=== PATIENT | male | born 1940 | race Caucasian/White ===

== ENCOUNTER 2017-05-14 08:10 | Outpatient (CLI) | payer MEDICARE, OTHER ==
--- NOTE | ~2017-05-14 | HEMODYNAMI ---
PATIENT:JESSIE BALDWIN MEDICAL RECORD: [id number] : 40 LOCATION:[facility] ADMISSION DATE: 05/14/17 Generatedon:05/14/201714:44 Patient name: JESSIE BALDWIN Patient #: [id number] SSN: D OB: 1940 Date of study: 05/14/2017 Page: Of Hemodynamic Procedure Report Patient Data Patient Demographics Procedure consent was obtained First Name: JESSIE Gender: Male Last Name: DENNY : 1940 Patient #: [id number] Age: 76 year(s) Race: Unknown Additional ID: [id number] Contact details Address: [place] [address] State: [place] City: [place] Zip code: [address] Past Medical History Allergies: No known allergies Admission Admission Data Admission Date: 05/14/2017 Admission Time: 8:10 Procedure Procedure Types Cath Procedure Diagnostic Procedure LHC LHC w/Coronaries FFR/IVUS Intra-Coronary IVUS Initial PCI Procedure Coronary Stent Initial Miscellaneous Procedures Moderate Sedation up to 30 minutes Procedure Description Procedure Date Procedure Date: 05/14/2017 Procedure Start Time: 14:27 Procedure End Time: 14:43 Procedure Staff Name Function Hang Banuelos MD Performing Physician Tariq Brown RT Scrub Salbador Flores RN Nurse Shaylee Foote RT Monitor Gareth Celeste RT Monitor Procedure Data Cath Procedure Fluoroscopy Diagnostic fluoroscopy Total fluoroscopy Time: 4.9 time: 4.9 min min Diagnostic fluoroscopy Total fluoroscopy dose: 611 dose: 611 mGy mGy Contrast Material Contrast Material Type Amount (ml) Isovue 300 94 Entry Location Entry Primary Successful Side Size Upsize Upsize Entry Closure Carson ccessful Closure Location (Fr) 1 (Fr) 2 (Fr) Remarks Device Remarks Radial Right 6 Fr Mechanical TR BAND artery Short Compression Estimated blood loss: 10 ml Diagnostic catheters Device Type Used For End Catheter Placement Diagnostic Terumo 5Fr Procedure [place] 110cm catheter Procedure Complications No complications Procedure Medications Medication Administration Route Dosage 0.9% NaCl I.V. 100 ml/hr Oxygen NC 2 l/min Heparin Flush Bag added to field 2 bags (1000units/500ml NS) Lidocaine 2% added to field 20 Versed I.V. 1 mg Fentanyl I.V. 50 mcg Radial Cocktail added to field 1 syringe (Verapomil 2mg/Nitro 400mcg/Heparin 1500units) Fentanyl I.V. 25 mcg Radial Cocktail I.A. 1 syringe (Verapomil 2mg/Nitro 400mcg/Heparin 1500units) Heparin Bolus I.V. 4000 units Hemodynamics Rest Heart Rate: 103 (bpm) Snapshots Pre Cath Intra NCS Post Cath Vital Signs Time Heart Resp SPO2 etCO2 NIBP (mmHg) Rhythm Pain Sedation Rate (ipm) (%) (mmHg) Status Level (bpm) 14:19:39 70 19 98 27.9 148/80(124) NSR 0 (11) 10(A) , No pain 14:24:23 73 14 97 34 144/78(114) NSR 0 (11) 10(A) , No pain 14:29:02 77 16 98 30.2 118/66(89) NSR 0 (11) 10(A) , No pain 14:33:41 78 16 94 37.8 124/70(95) NSR 0 (11) 10(A) , No pain 14:38:19 74 15 95 32.5 134/74(102) NSR 0 (11) 9(A) , No pain 14:43:02 73 17 97 32.5 142/72(116) NSR 0 (11) 9(A) , No pain Medications Time Medication Route Dose Verified Delivered Reason Note s Effectiveness by by 14:21:03 0.9% NaCl I.V. 100 Hang Salbador Per physician ml/hr Lakisha Flores RN 14:21:18 Oxygen NC 2 l/min Hang Siu Per physician Lakisha Flores RN 14:21:31 Heparin Flush added 2 bags Hang Salbador used for Bag to Lakisha Flores procedure (1000units/500ml RN NS) 14:21:44 Lidocaine 2% added 20ml Hang Salbador for local to vial Lakisha Flores anesthetic field PALOMINO 14:22:09 Versed I.V. 1 mg Hang Salbador for sedation Lakisha Flores RN 14:22:20 Fentanyl I.V. 50 mcg Hang Siu for sedation Lakisha Flores RN 14:22:33 Radial Cocktail added 1 Hang Siu for (Verapomil to syringe Lakisha Flores vasodilation 2mg/Nitro field RN 400mcg/Heparin 1500units) 14:26:49 Fentanyl I.V. 25 mcg Hang Siu for sedation Lakisha Flores RN 14:28:20 Radial Cocktail I.A. 1 Hang Mauricio for (Verapomil syringe Lakisha Banuelos MD vasodilation 2mg/Nitro 400mcg/Heparin 1500units) 14:33:33 Heparin Bolus I.V. 4000 Hang Mauricio for units Lakisha Banuelos MD anticoagulation Procedure Log Time Note 14:03:44 Salbador Flores RN sent for patient. Start room use. 14:03:45 Time tracking: Regular hours 14:03:50 Plan of Care:Hemodynamics will remain stable., Cardiac rhythm will remain stable., Comfort level will be maintained., Respiratory function will remain adequate., Patient/ family verbilizes understanding of procedure., Procedure tolerated without complication., Recovers from procedure without complications.. 14:04:57 H&P Date Dictated: 04/22/2017 Within 30 days and on chart., H&P Addendum completed by physician on day of procedure. (MUST COMPLETE FOR ALL OUTPATIENTS). 14:07:16 Patient arrived from Pre/Post Procedure Room to CCL 1. Patient remains on bed/stretcher for procedure. 14:07:20 Warm blankets applied, and jb hugger turned on for patient comfort. 14:07:21 Correct patient and procedure confirmed by team. 14:07:22 Signed procedure consent form obtained from patient. 14:07:24 ECG and BP/O2 sat monitors applied to patient. 14:18:42 Vital chart was started 14:18:43 Baseline sample Acquired. 14:18:47 Rhythm: unchanged. 14:18:47 Full Disclosure recording started 14:18:52 Pre-procedure instructions explained to patient. 14:18:52 Pre-op teaching completed and patient verbalized understanding. 14:18:55 Family in patients room. 14:18:57 Patient NPO since Midnight. 14:19:05 Patient allergic to No known allergies 14:19:27 Is the patient allergic to Iodine/contrast media? No. 14:19:37 Is patient on blood thinner?Yes 14:19:40 ACC The patient was administered the following blood thiners within the last 24 hours: ACCPlavix 14:19:42 Patient diabetic? Yes. 14:19:43 If diabetic: On Metformin? Yes 14:19:46 If on Metformin: Last Dose? 05/12/2017 14:19:50 Previous problem with sedation/anesthesia? No ? 14:19:51 Snore? Yes 14:19:52 Sleep apnea? No 14:19:54 Deviated septum? No 14:19:54 Opens mouth fully? Yes 14:19:55 Sticks out tongue? Yes 14:19:57 Airway obstruction? No ? 14:20:00 Dentures? Yes IN TIGHT 14:20:14 Modified Alf's test Ulnar < 7 seconds 14:20:16 Patient pain scale 0/10 ?. 14:20:24 IV patent on arrival in left hand with 0.9% NaCl at [facility]. 14:20:27 Lab results completed and on chart. 14:20:30 Right Radial & Right Groin area was prepped with chlora-prep and draped in sterile fashion 14:20:31 Alarms reviewed by R. N. 14:20:32 Sharps counted by scrub and verified by R.N. 14:20:34 --------ALL STOP TIME OUT------ 14:20:34 Final Timeout: patient, procedure, and site verified with staff and physician. All members of the team are in agreement. 14:20:36 Right Radial & Right Groin site verified by team. 14:20:38 Physical assessment completed. ASA score P 2 - A patient with mild systemic disease as per Hang Banuelos MD. 14:20:42 Sedation plan: IV Moderate Sedation Versed, Fentanyl 14:21:03 0.9% NaCl 100 ml/hr I.V. was administered by Salbador Flores RN; Per physician; 14:21:16 Use device set Radial Dx 14:21:17 Acist Syringe opened to sterile field. 14:21:18 Oxygen 2 l/min NC was administered by Salbador Flores RN; Per physician; 14:21:18 Acist Hand Control opened to sterile field. 14:21:19 Acist Manifold opened to sterile field. 14:21:19 Tegaderm 4 x 4 opened to sterile field. 14:21:20 MBrace Wrist Support opened to sterile field. 14:21:21 Medline Cath Pack opened to sterile field. 14:21:21 Bag Decanter opened to sterile field. 14:21:22 Terumo 6Fr Slender Glidesheath opened to sterile field. 14:21:22 [place] 260cm J .035 wire opened to sterile field. 14:21:31 Heparin Flush Bag (1000units/500ml NS) 2 bags added to field was administered by Salbador Flores RN; used for procedure; 14::44 Lidocaine 2% 20ml vial added to field was administered by Salbador Flores RN; for local anesthetic; 14::09 Versed 1 mg I.V. was administered by Salbador Flores RN; for sedation; 14:22:20 Fentanyl 50 mcg I.V. was administered by Salbador Flores RN; for sedation; 14::33 Radial Cocktail (Verapomil 2mg/Nitro 400mcg/Heparin 1500units) 1 syringe added to field was administered by Salbador Flores RN; for vasodilation; 14:23:15 Zero performed for pressure channel P1 14:26:49 Fentanyl 25 mcg I.V. was administered by Salbador Flores RN; for sedation; 14:27:04 Procedure started. 14:27:18 Local anesthetic to right radial artery with Lidocaine 2% by Hang Banuelos MD.INITIAL ACCESS ONLY 14:27:42 A 6 Fr Short sheath was inserted into the Right Radial artery 14:28:10 A Diagnostic Terumo 5Fr [place] 110cm catheter was advanced over the wire and used for Procedure. 14:28:20 Radial Cocktail (Verapomil 2mg/Nitro 400mcg/Heparin 1500units) 1 syringe I.A. was administered by Hang Banuelos MD; for vasodilation; 14:28:34 LV gram done using WING 14:28:35 LV hemodynamics recorded. 14:28:37 Injector settings: Ml/sec: 7, Volume: 15, 14:29:42 EF : 60 % 14:29:58 LCA angiography performed. 14:30:08 Merit BasixCompak Inflation Kit opened to sterile field. 14:30:39 RCA angiography performed. 14:31:18 Medtronic Launcher 6Fr AR 2.0 guide catheter opened to sterile field. 14:31:41 [place] IVUS Catheter opened to sterile field. 14:32:43 [place] Sci PT Graphix J 182cm 0.014 guide wire opened to sterile field. 14:32:53 6 Fr AR 2 guide catheter was inserted over the wire 14:32:58 PT GRAPHIC wire advanced. 14:33:33 Heparin Bolus 4000 units I.V. was administered by Hang Banuelos MD; for anticoagulation; 14:33:41 IVUS catheter advanced over wire. 14:37:19 IVUS pass to RCA lesion performed. 14:37:20 IVUS catheter removed over wire. 14:39:12 Inflation number: 1 A Medtronic Integrity Rx 3.5 x 15 stent was prepped and advanced across the Dist RCA, then inflated to 11 HAN for 0:10 (min:sec). 14:39:28 Stent catheter was removed intact over wire. 14:39:29 Wire removed. 14:39:29 Guide catheter removed. 14:39:46 Terumo TR Band Standard opened to sterile field. 14:40:01 Sheath removed intact; hemostasis achieved with Mechanical Compression to the Right Radial artery. 14:40:03 Procedure ended.(Physican Out) 14:40:09 Fluoroscopy time 04.90 minutes. 14:40:15 Flurop Dose total: 611 14:40:15 Fluoroscopy dose: 611 mGy 14:40:19 Contrast amount:Isovue 300 94ml. 14:42:11 TR band inflated with 12cc of air. 14:42:15 Post Procedure Pulses reassessed and unchanged 14:42:23 Post-procedure physical assessment completed. ASA score P 2 - A patient with mild systemic disease as per Hang Banuelos MD. 14:42:26 Post procedure rhythm: unchanged. 14:42:29 Estimated blood loss: 10 ml 14:42:30 Post procedure instruction explained to patient.Patient verbalizes understanding. 14:42:32 Patient needs reinforcement of post procedure teaching. 14:43:06 Procedure type changed to Cath procedure, Diagnostic procedure, LHC, LHC w/Coronaries, FFR/IVUS, Intra-Coronary IVUS Initial, PCI procedure, Coronary Stent Initial, Miscellaneous Procedures, Moderate Sedation up to 30 minutes 14:43:41 Procedure and supply charges have been captured, reviewed, submitted and are correct. 14:43:44 Procedure Complication : No complications 14:43:47 Vital chart was stopped 14:43:48 See physician's report for complete and final results. 14:43:52 Report given to Pre/Post Procedure Room. 14:43:55 Patient transfered to Pre/Post Procedure Room with Bed. 14:43:57 Procedure ended. 14:43:57 Full Disclosure recording stopped 14:43:59 End room use (Document Last) Intervention Summary Intervention Notes Time ActionType Lesion and Equipment Action# Pressure Duration Attributes Used 14:39:12 Inflate Dist RCA Medtronic 1 11 00:10 balloon Integrity Rx 3.5 x 15 stent Device Usage Item Name Manufacture Quantity Catalog Number Hospital Part Current Minim al Lot# / Charge Number Stock Stock Serial# Code Acist Acist 1 74140 [id number] 198267 732139 20 Syringe Medical Systems Inc Acist Hand Acist 1 93856 018288 527828 824759 5 Control Medical Systems Inc Acist Acist 1 09210 940465 867247 024066 5 Manifold Medical Systems Inc Tegaderm 4 3M 1 1626W 852266 156993 066838 5 x 4 MBrace Advanced 1 140-0250-00 966872 00581 054869 5 Wrist Vascular Support Dynamics Medline Cardinal 1 [id number] 802335 66566 014240 5 Cath Pack Health Bag Microtek 1 2002S 147379 11958 854630 5 Mobiplex Inc. Terumo 6Fr Terumo 1 [id number] 256247 044820 774070 [address] Leonard 1 798525 655915 186571 759737 30 260cm J .035 wire Diagnostic Terumo 1 80-8331 696878 527722 445153 5 Terumo 5Fr [place] 110cm catheter Merit Merit 1 [id number] 797091 613305 738366 15 BasixComSeeSaw [employer] Medical Inflation Kit Medtronic Medtronic 1 [id number] 721265 63811 700741 1 Launcher 6Fr AR 2.0 guide catheter Locke Locke 1 [id number] 954824 699643 102644 8 [place] IVUS Catheter [place] Sci Stock[place] 1 [id number] 721351 373616 468417 5 PT Graphix Scientific J 182cm 0.014 guide wire Medtronic Medtronic 1 [id number] 285849 273326 241321 5 [id number] Integrity Rx 3.5 x 15 stent Terumo TR Terumo 1 [id number] 642329 772158 384521 40 Band Standard Signature Audit Perry Stage Time Signature Unsigned Intra-Procedure 05/14/2017 Shaylee Foote 2:44:20 PM RT(R) Signatures Monitor : Shaylee Foote Signature : RT Date : Time : Monitor : Gaerth Celeste RT Signature : Date : Time : [address] [address]
[2017-05-14] MEDS ORDERED: ZOCOR40 MG PO (09:15)
[2017-05-14] MEDS ORDERED: GLUCOPHAGE1000 MG PO (09:15)
[2017-05-14] MEDS ORDERED: COZAAR50 MG PO (09:15)
[2017-05-14] MEDS ORDERED: OMEPRAZOLE20 M1 PO (09:16)
[2017-05-14] MEDS ORDERED: CLARITIN 10 MG10 MG PO (09:16)
[2017-05-14] MEDS ORDERED: BUPROPION XL150 MG PO (09:16)
[2017-05-14] MEDS ORDERED: FLUTICASONE PRO16 GM NASAL (09:17)
[2017-05-14] MEDS ORDERED: NOVOLIN N100 U/ML SQ (09:17)
[2017-05-14] MEDS ORDERED: MULTIPLE VITAMI1 TA1 PO (09:17)
[2017-05-14] MEDS ORDERED: PLAVIX75 MG PO (09:18)
[2017-05-14 09:29] VITALS: BP 170/78; BMI 28.0
[2017-05-14 09:45] LABS: BASOPHILS 0.4 % (0-2); EOSINOPHILS 4.2 % (0-7); HEMOGLOBIN 14.9 g/dL (13.5-17.5); IMMATURE GRANULOCYTES 0.3 % (0-5); LYMPHOCYTES 26.1 % (15-50); MCH 29.9 pg (26.0-34.0); MCHC 34.7 g/dL (31.0-37.0); MCV 86.3 fL (80.0-100.0); MEAN PLATELET VOLUME 9.2 fL (7.4-10.4); MONOCYTES 8.5 % (2-11); NEUTROPHILS 60.5 % (40-80); PLATELET COUNT 185 10x3/uL (130-400); RBC 4.98 10x6/uL (4.20-6.10); RDW 12.8 % (11.5-14.5); WBC 7.1 10x3/uL (4.8-10.8)
[2017-05-14 10:06] LABS: CALC OSMOLALITY 284 mosm/kg (275-300); CALCIUM 9.1 mg/dL (8.5-10.1); CARBON DIOXIDE 27.2 mmol/L (21.0-32.0); CHLORIDE - SERUM 103 mmol/L (98-107); GLUCOSE 217 mg/dL (74-106); POTASSIUM - SERUM 4.4 mmol/L (3.5-5.1); SODIUM 139 mmol/L (136-145); UREA NITROGEN 12 mg/dL (7-18); eGFR NON AFRICAN AMERICAN 77 mL/min (90-120)
[2017-05-14] MEDS ORDERED: BAYER CHEWABLE81 MG PO (15:08)
--- NOTE | 2017-05-14 15:26 | NUR ---
1510 SITTING UP IN BED TALKING WITH FAMILY AT BEDSIDE. SIPPING WATER AND EATING TURKEY SANDWICH. NSR RATE 78 W NO C/O CHEST PAIN. PULSES PALP X 4, R WRIST TR BAND C/D/I WNO HEMATOMA OR BLEEDING.
--- NOTE | 2017-05-14 18:34 | NUR ---
1540 RESTING WITH EYES CLOSED. ROOM AIR. ALL VITALS WNL. R WRIST TR BAND C/D/I W NO HEMATOMAO OR BLEEDING. AT SIDE.
--- NOTE | 2017-05-14 18:35 | NUR ---
1640 R WRIST TR BAND C/D/I NO HEMATOMA OR BLEEDING. VOIDED 300CC VIA URINAL. ALL VITALS WNL. 1800 2CC AIR REMOVED FROM R WRIST TR BAND. WILL MONITOR CLOSELY FOR BLEEDING. 1820 2CC AIR REMOVED FROM R WRIST TR BAND. PIV REMOVED FROM LEFT WRIST WITH BANDAID APPLIED.
--- NOTE | 2017-05-14 18:54 | NUR ---
TR BAND WEANED COMPLETELY. TEGADERM AND COTTON BALL APPLIED. BRACE IN PLACE. D/C INSTRUCTIONS DISCUSSED WITH PATIENT AND AT BEDSIDE. RETURNING ON WEDNESDAY MORNING AT 8AM FOR 10AM PROCEDURE. DISCUSSED IMPORTANCE OF DAILY PLAVIX AND ASPIRIN. VERBALIZED UNDERSTANDING. WHEELED OUT VIA WHEELCHAIR BY CATH TEAM.
--- NOTE | 2017-05-21 14:14 | OP ---
PATIENT NAME: JESSIE BALDWIN MEDICAL RECORD: [id number] :40 LOCATION:D.CAT ADMISSION DATE: SURGEON: PRASAD HINOJOSA MD DATE OF OPERATION: 05/14/2017 PROCEDURES: 1. PTCA stent RCA. 2. Left heart catheterization. 3. Selective coronary angiography. 4. Left ventriculogram. 5. Intravascular ultrasound. INDICATION: Angina and coronary artery disease. PROCEDURE IN DETAIL: After informed consent was obtained and after detailed explanation of risks, benefits as well as alternative therapies, the patient elected to proceed with angiogram and angioplasty. The right radial area was prepped and draped in normal sterile fashion. The right radial artery was cannulated via modified Seldinger technique with placement of 6-Canadian sheath. All catheters exchanged through this sheath. FINDINGS: 1. The left anterior descending has 80% stenosis in the mid vessel. 2. The left circumflex has 70% to 80% stenosis in mid vessel. 3. Right coronary artery has 71% stenosis in the mid vessel confirmed by intravascular ultrasound. PTCA STENT OF THE RIGHT CORONARY: The stent used was 3.5 x 15 mm Integrity. Result was 0% residual stenosis. OVERALL IMPRESSION: Successful percutaneous transluminal coronary angioplasty stent of the right coronary artery going from 71% initial stenosis to 0% residual stenosis. PLAN: PTCA stent of the LAD and circumflex in the near future. TRANSINT:[id number] Voice Confirmation ID: [id number] DOCUMENT ID: [id number] PRASAD HINOJOSA MD at 1414 CC: [id number] DICTATION DATE: 05/14/17 1443 FUR BUYER: 05/14/[address] [facility] CLI 05/14/[address] [id number]
== END 2017-05-14 18:56 | disposition home or self-care (01) ==
LOC: D.CATH 08:10
PROVIDERS: Internal Medicine Interventional Cardiology
DX: I25.119 Atherosclerotic heart disease of native coronary artery with unspecified angina pectoris (principal); I10 Essential (primary) hypertension; E78.5 Hyperlipidemia, unspecified; Z01.812 Encounter for preprocedural laboratory examination

== ENCOUNTER 2017-05-17 07:44 | Outpatient (CLI) | payer MEDICARE, OTHER ==
[~2017-05-17] VITALS: Ht 182.9 cm; Wt 93.6 kg
--- NOTE | ~2017-05-17 | HEMODYNAMI ---
PATIENT:JESSIE BALDWIN MEDICAL RECORD: [id number] : 40 LOCATION:DSKIP ADMISSION DATE: 05/17/17 Generatedon:05/17/201713:01 Patient name: JESSIE BALDWIN Patient #: [id number] SSN: D OB: 1940 Date of study: 05/17/2017 Page: Of Hemodynamic Procedure Report Patient Data Patient Demographics Procedure consent was obtained First Name: JESSIE Gender: Male Last Name: DENNY : 1940 Patient #: [id number] Age: 76 year(s) Race: Unknown Additional ID: [id number] Contact details Address: [place] [address] State: [place] City: [place] Zip code: [address] Past Medical History Allergies: No known allergies Admission Admission Data Admission Date: 05/17/2017 Admission Time: 7:44 Procedure Procedure Types Cath Procedure PCI Procedure Coronary Stent Initial x2 Miscellaneous Procedures Moderate Sedation up to 30 minutes Procedure Description Procedure Date Procedure Date: 05/17/2017 Procedure Start Time: 12:41 Procedure End Time: 12:59 Procedure Staff Name Function Hang Banuelos MD Performing Physician Shaylee Foote RT Scrub Pilo De Guzman RN Nurse Ilana Danielle RT Monitor Procedure Data Cath Procedure Fluoroscopy Diagnostic fluoroscopy Total fluoroscopy Time: 5.5 time: 5.5 min min Diagnostic fluoroscopy Total fluoroscopy dose: 608 dose: 608 mGy mGy Contrast Material Contrast Material Type Amount (ml) Isovue 300 126 Entry Location Entry Primary Successful Side Size Upsize Upsize Entry Closure Carson ccessful Closure Location (Fr) 1 (Fr) 2 (Fr) Remarks Device Remarks Radial Right 6 Fr Mechanical artery Short Compression Estimated blood loss: 10 ml Procedure Complications No complications Procedure Medications Medication Administration Route Dosage 0.9% NaCl I.V. ml/hr Oxygen NC 2 l/min Lidocaine 2% added to field 20 Heparin Flush Bag added to field 2 bags (1000units/500ml NS) Heparin Bolus I.V. 4000 units Versed I.V. 1 mg Fentanyl I.V. 50 mcg Versed I.V. 1 mg Fentanyl I.V. 50 mcg Hemodynamics Rest Heart Rate: 71 (bpm) Snapshots Pre Cath Intra NCS Post Cath Vital Signs Time Heart Resp SPO2 etCO2 NIBP (mmHg) Rhythm Pain Sedation Rate (ipm) (%) (mmHg) Status Level (bpm) 12:38:42 72 20 99 28.8 141/78(110) NSR 0 (11) 10(A) , No pain 12:43:22 73 21 95 11.3 118/71(90) NSR 0 (11) 9(A) , No pain 12:48:03 74 14 98 25 111/69(96) NSR 0 (11) 9(A) , No pain 12:52:46 80 14 97 30.3 130/73(102) NSR 0 (11) 10(A) , No pain 12:57:30 83 14 98 28 132/75(104) NSR 0 (11) 10(A) , No pain Medications Time Medication Route Dose Verified Delivered Reason Notes Effectiveness by by 12:38:11 0.9% NaCl I.V. ml/hr Hang Buffie used for Lakisha De Guzman RN procedure 12:38:31 Oxygen NC 2 Hang Buffie used for l/min Lakisha De Guzman RN procedure 12:38:53 Lidocaine 2% added 20ml Hang Mauricio used for to vial Lakisha Banuelos MD procedure field 12:39:13 Heparin Flush added 2 Hang Hang used for Bag to bags Lakisha Banuelos MD procedure (1000units/500ml field NS) 12:40:46 Versed I.V. 1 mg Hang Kellerie for sedation Lakisha De Guzman RN 12:40:52 Fentanyl I.V. 50 Hang Buffie for sedation mcg Lakisha De Guzman RN 12:43:16 Heparin Bolus I.V. 4000 Hangjuan Maresrey for verifi ed units Lakisha Banuelos MD anticoagulation with 12:47:12 Versed I.V. 1 mg Hang Buffie for sedation Lakisha De Guzman RN 12:47:16 Fentanyl I.V. 50 Hang Kellerie for sedation mcg Lakisha De Guzman RN Procedure Log Time Note 12:25:27 Ilana Counts RT(R) sent for patient. Start room use. 12:25:28 Time tracking: Regular hours 12:25:31 Plan of Care:Hemodynamics will remain stable., Cardiac rhythm will remain stable., Comfort level will be maintained., Respiratory function will remain adequate., Patient/ family verbilizes understanding of procedure., Procedure tolerated without complication., Recovers from procedure without complications.. 12:28:27 Patient received from Pre/Post Procedure Room to [facility] 1 Alert and oriented. Tansferred to table in Supine position. 12::28 Warm blankets applied, and jb hugger turned on for patient comfort. 12::29 Correct patient and procedure confirmed by team. 12::34 Signed procedure consent form obtained from patient. 12:28:34 ECG and BP/O2 sat monitors applied to patient. 12:37:41 Vital chart was started 12:38:11 0.9% NaCl ml/hr I.V. was administered by Pilo De Guzman RN; used for procedure; 12:38:29 Baseline sample Acquired. 12:38:30 Full Disclosure recording started 12:38:31 Oxygen 2 l/min NC was administered by Pilo De Guzman RN; used for procedure; 12:38:39 H&P Date Dictated: 05/17/2017 Within 30 days and on chart., H&P Addendum completed by physician on day of procedure. (MUST COMPLETE FOR ALL OUTPATIENTS). 12:38:40 Pre-procedure instructions explained to patient. 12:38:41 Pre-op teaching completed and patient verbalized understanding. 12:38:42 Family in waiting room. 12:38:45 Patient NPO since Midnight. 12:38:50 Patient allergic to No known allergies 12:38:52 Is the patient allergic to Iodine/contrast media? No. 12:38:53 Lidocaine 2% 20ml vial added to field was administered by Hang Banuelos MD; used for procedure; 12:38:54 Is patient on blood thinner?Yes 12:38:57 ACC The patient was administered the following blood thiners within the last 24 hours: ACCPlavix 12:38:58 Patient diabetic? Yes. 12:38:59 If diabetic: On Metformin? Yes 12:39:03 If on Metformin: Last Dose? 05/12/2017 12:39:07 Previous problem with sedation/anesthesia? No ? 12:39:08 Snore? Yes 12:39:09 Sleep apnea? No 12:39:10 Deviated septum? No 12:39:11 Opens mouth fully? Yes 12:39:12 Sticks out tongue? Yes 12:39:13 Heparin Flush Bag (1000units/500ml NS) 2 bags added to field was administered by Hang Banuelos MD; used for procedure; 12:39:13 Airway obstruction? No ? 12:39:15 Dentures? No ? 12:39:17 Pre procedure: right dorsailis pedis pulse 2+ Normal; easily identifiable; not easily obliterated 12:39:19 Modified Alf's test Ulnar < 7 seconds 12:39:21 Patient pain scale 0/10 ?. 12:39:26 IV patent on arrival in left hand with 0.9% NaCl at [facility]. 12:39:30 Lab results completed and on chart. 12:39:32 Right Radial & Right Groin area was prepped with chlora-prep and draped in sterile fashion 12:39:33 Alarms reviewed by R. N. 12:39:34 Sharps counted by scrub and verified by R.N. 12:39:40 Final Timeout: patient, procedure, and site verified with staff and physician. All members of the team are in agreement. 12:39:42 Right Radial site verified by team. 12:40:13 Physical assessment completed. ASA score P 2 - A patient with mild systemic disease as per Hang Banuelos MD. 12:40:17 Sedation plan: IV Moderate Sedation Versed, Fentanyl 12:40:41 Use device set Radial PCI 12:40:43 Acist Syringe opened to sterile field. 12:40:44 Acist Hand Control opened to sterile field. 12:40:44 Bag Decanter opened to sterile field. 12:40:44 Medline Cath Pack opened to sterile field. 12:40:45 Merit BasixCompak Inflation Kit opened to sterile field. 12:40:45 Terumo 6Fr Slender Glidesheath opened to sterile field. 12:40:45 Acist Manifold opened to sterile field. 12:40:46 Versed 1 mg I.V. was administered by Pilo D eGuzman RN; for sedation; 12:40:46 Tegaderm 4 x 4 opened to sterile field. 12:40:46 MBrace Wrist Support opened to sterile field. 12:40:47 [facility] Leonard 260cm J .035 wire opened to sterile field. 12:40:49 Procedure started. 12:40:52 Fentanyl 50 mcg I.V. was administered by Pilo De Guzman RN; for sedation; 12:41:16 Local anesthetic to right radial artery with Lidocaine 2% by Hang Banuelos MD.INITIAL ACCESS ONLY 12:41:55 A 6 Fr Short sheath was inserted into the Right Radial artery 12:42:05 Zero performed for pressure channel P1 12:42:08 Zero performed for pressure channel P1 12:42:10 Zero performed for pressure channel P1 12:42:13 Zero performed for pressure channel P1 12:43:16 Heparin Bolus 4000 units I.V. was administered by Hang Banuelos MD; for anticoagulation; verified with 12:43:20 Cordis 6FR XBLAD 4.0 SH guide catheter opened to sterile field. 12:43:30 6 Fr XBLAD 4.0 SH guide catheter was inserted over the wire 12:45:12 Guide Catheter removed. unable to cannulate vessel. 12:45:22 Cordis 6FR XBLAD 3.5 SH guide catheter opened to sterile field. 12:47:12 Versed 1 mg I.V. was administered by Pilo De Guzman RN; for sedation; 12:47:16 Fentanyl 50 mcg I.V. was administered by Pilo De Guzman RN; for sedation; 12:49:23 [place] [employer] Choice PT Extra Support J 300cm .014 gu opened to sterile field. 12:50:17 CHOICE PT ES wire advanced. 12:50:53 Inflation Number: 1 A Medtronic Integrity 3.5 X 18 stent was prepped and advanced across the Mid CX. The stent was deployed at 13 HAN for 0:07 (min:sec). 12:51:08 Wire redirected to LAD. 12:51:11 Stent catheter was removed intact over wire. 12:54:13 Inflation Number: 1 A Medtronic Integrity 3.0 X 22 stent was prepped and advanced across the Mid LAD. The stent was deployed at 15 HAN for 0:10 (min:sec). 12:54:23 Stent catheter was removed intact over wire. 12:54:24 Wire removed. 12:54:24 Guide catheter removed. 12:55:02 Terumo TR Band Standard opened to sterile field. 12:55:11 Sheath removed intact; hemostasis achieved with Mechanical Compression to the Right Radial artery. 12:55:13 Procedure ended.(Physican Out) 12:55:25 Fluoroscopy time 05.50 minutes. 12:55:29 Fluoroscopy dose: 608 mGy 12:55:29 Flurop Dose total: 608 12:55:32 Contrast amount:Isovue 300 126ml. 12:55:34 Sharps counted by scrub and verified by R.N. 12:55:37 TR band inflated with 12cc of air. 12:55:38 Insertion/operative site no bleeding no hematoma. 12:55:47 Post right radial artery:stable, clean and dry 12:55:50 Post Procedure Pulses reassessed and unchanged 12:55:55 Post-procedure physical assessment completed. ASA score P 2 - A patient with mild systemic disease as per Hang Banuelos MD. 12:55:58 Post procedure rhythm: unchanged. 12:56:01 Estimated blood loss: 10 ml 12:56:03 Post procedure instruction explained to patient.Patient verbalizes understanding. 12:56:03 Patient needs reinforcement of post procedure teaching. 12:56:17 Procedure type changed to Cath procedure, PCI procedure, Coronary Stent Initial x2, Miscellaneous Procedures, Moderate Sedation up to 30 minutes 12:56:24 Procedure Complication : No complications 12:56:27 See physician's report for complete and final results. 12:58:36 Procedure and supply charges have been captured, reviewed, submitted and are correct. 12:59:17 Vital chart was stopped 12:59:19 Report given to Pre/Post Procedure Room. 12:59:22 Patient transfered to Pre/Post Procedure Room with Stretcher. 12:59:29 Procedure ended. 12:59:29 Full Disclosure recording stopped 12:59:32 End room use (Document Last) Intervention Summary Intervention Notes Time ActionType Lesion and Equipment Action# Pressure Duration Attributes Used 12:50:53 Place stent Mid CX Medtronic 1 13 00:07 Integrity 3.5 X 18 stent 12:54:13 Place stent Mid LAD Medtronic 1 15 00:10 Integrity 3.0 X 22 stent Device Usage Item Name Manufacture Quantity Catalog Number Hospital Part Current Minim al Lot# / Charge Number Stock Stock Serial# Code Acist Acist 1 [id number] 974140 804166 [id number] 20 Advaction Acist Hand Acist 1 59823 853225 503908 323626 5 Control Medical Systems Inc Bag Microtek 1 2002S 171844 20134 727746 5 Decanter [employer] Inc. Medline Cardinal 1 [id number] 985442 64135 350319 5 Nordicplan [facility] 1 [id number] 967636 127849 054916 15 SPIL GAMESixOportunista Medical Inflation Kit Terumo 6Fr Terumo 1 [id number] 582807 810700 760120 40 Slender Glidesheath Acist Acist 1 90395 447111 599423 577861 5 Manifold Medical Systems Inc Tegaderm 4 3M 1 1626W 520573 747929 436769 5 x 4 MBrace Advanced 1 140-0250-00 321594 71133 704451 5 W[address] V[address] [facility] Leonard 1 650025 162090 123498 700653 30 260cm J .035 wire Cordis 6FR Cardinal 1 [id number] 409629 2159 670131 3 XBLAD 4.0 [facility] guide catheter Cordis 6FR Cardinal 1 [id number] 080144 022568 079444 3 XBLAD 3.5 Health guide catheter [place] Sci [place] 1 [id number] 616316 871627 638445 5 Choice PT Scientific Extra Support J 300cm .014 gu Medtronic Medtronic 1 [id number] 040532 571319 4 [id number] Integrity 3.5 X 18 stent Medtronic Medtronic 1 [id number] 844390 221903 9 [id number] Integrity 3.0 X 22 stent Terumo TR Terumo 1 [id number] 614449 342819 134917 40 Band Standard Signature Audit Homer Stage Time Signature Unsigned Intra-Procedure 05/17/2017 Ilana 1:01:00 PM Counts RT(R) Signatures Monitor : Ilana Signature : Counts RT Date : Time : [facility] [address] [place] [address]
[~2017-05-17 07:44] MED LIST: BAYER CHEWABLE81 MG PO; BUPROPION XL150 MG PO; CLARITIN 10 MG10 MG PO; COZAAR50 MG PO; FLUTICASONE PRO16 GM NASAL; GLUCOPHAGE1000 MG PO; MULTIPLE VITAMI1 TA1 PO; NOVOLIN N100 U/ML SQ; OMEPRAZOLE20 M1 PO; PLAVIX75 MG PO; ZOCOR40 MG PO
[2017-05-17 08:50] VITALS: BP 144/74; Ht 182.9 cm; Wt 93.6 kg
[2017-05-17 09:03] LABS: BASOPHILS 0.4 % (0-2); EOSINOPHILS 3.4 % (0-7); HEMATOCRIT 42.2 % (42.0-54.0); HEMOGLOBIN 14.8 g/dL (13.5-17.5); IMMATURE GRANULOCYTES 0.7 % (0-5); LYMPHOCYTES 22.5 % (15-50); MCH 30.1 pg (26.0-34.0); MCHC 35.1 g/dL (31.0-37.0); MCV 85.9 fL (80.0-100.0); MEAN PLATELET VOLUME 9.1 fL (7.4-10.4); MONOCYTES 6.8 % (2-11); NEUTROPHILS 66.2 % (40-80); PLATELET COUNT 188 10x3/uL (130-400); RBC 4.91 10x6/uL (4.20-6.10); RDW 12.6 % (11.5-14.5); WBC 7.6 10x3/uL (4.8-10.8)
[2017-05-17 09:10] LABS: ANION GAP 11.6 mmol/L (8-16); CALCIUM 8.6 mg/dL (8.5-10.1); CARBON DIOXIDE 25.4 mmol/L (21.0-32.0); CREATININE - SERUM 1.1 mg/dL (0.6-1.3)
--- NOTE | 2017-05-17 13:14 | NUR ---
1305 RECEIVED PT FROM CHIEF DIGITAL OFFICER. PT IS DROSWY. DENIES ANY C/O CHEST PAIN OR NAUSEA. TR BAND CDI TO RIGHT WRIST WITH NO BLEEDING OR HEMATOMA NOTED. FINGERS WARM, CAP REFILL IS BRISK. NSR, RATE OF 76, PT DENIES ANY C/O CHEST PAIN. AT BEDSIDE, CALL LIGHT IN REACH.
--- NOTE | 2017-05-17 13:15 | NUR ---
1315 NO BLEEDING OR HEMATOMA NOTED AT TR BAND. FINGERS WARM, CAP REFILL IS BRISK. RR IS EVEN AND UNLABORED. PT DENIES ANY C/O. AT BEDSIDE. CALL LIGHT IN REACH.
--- NOTE | 2017-05-17 13:30 | NUR ---
1330 AT BEDSIDE. SANDWICH AND PO FLUIDS SERVED. PT DENIES ANY C/O. NO BLEEDING OR HEMATOMA AT CATH SITE. VSS. WILL CONTINUE TO MONITOR.
--- NOTE | 2017-05-17 14:04 | NUR ---
1345 PT DENIES ANY C/O. IS JOSE ANGEL SANDWICH AND PO FLUIDS WITH NO C/O. NO BLEEDING NOTED AT CATH SITE. AT BEDSIDE, CALL LIGHT IN REACH.
--- NOTE | 2017-05-17 14:42 | NUR ---
1430 PT ALERT, SITTING UP IN BED VISITING WITH . DENIES ANY C/O AT THIS TIME. TR BAND IS CDI, NO BLEEDING OR HEMATOMA NOTED. FINGERS WARM, CAP REFILL IS BRISK, VSS. PT DENIES NEEDS AT THIS TIME. WILL CONTINUE TO MONITOR.
--- NOTE | 2017-05-17 15:30 | NUR ---
1530 PT DENIES ANY C/O. HAS JOSE ANGEL SANDWICH AND PO FLUIDS WITH NO NAUSEA. TR BAND REMAINS CDI, VSS. AT BEDSIDE AND CALL LIGHT IN REACH.
--- NOTE | 2017-05-17 16:00 | NUR ---
1600 4 CC OF AIR REMOVED FROM TR BAND WITH NO BLEEDING NOTED. PT DENIES ANY C/O.
--- NOTE | 2017-05-17 16:45 | NUR ---
1645 ALL AIR AHS BEEN REMOVED FROM TR BAND WITH NO BLEEDING OR HEMATOMA NOTED. FINGERS WARM, CAP REFILL IS BRISK. 2X2 AND TEGADERM PLACED TO SITE. WRIST IMMOBILIZER IN PLACE. FINGERS WARM, CAP REFILL IS BRISK. PT DENIES ANY NV DEFICIT TO HAND. IV DC'D WITH CATH INTACT AND PT IS DRESSING FOR DC TO HOME.
--- NOTE | 2017-05-17 18:03 | NUR ---
1705 DC INSTRUCTIONS HAVE BEEN REVIEWED WITH PT AND WHO VERBALIZE UNDERSTANDING. PT HAS AMBULATED TO THE BATHROOM AND VOIDED QS. DRESSING TO RIGHT WRIST REMAINS CDI. PT ESCORTED TO PRIVATE AUTO VIA WC BY NURSE WITH DRIVING HIM HOME.
--- NOTE | 2017-05-21 14:14 | OP ---
PATIENT NAME: JESSIE BALDWIN MEDICAL RECORD: [id number] :40 LOCATION:D.CAT ADMISSION DATE: SURGEON: PRASAD HINOJOSA MD DATE OF OPERATION: 05/17/2017 PROCEDURES: 1. PTCA stent LAD. 2. PTCA stent left circumflex. 3. Selective coronary angiography. INDICATION: Angina and coronary artery disease. PROCEDURE IN DETAIL: After informed consent was obtained and after detailed explanation of risks, benefits as well as alternative therapies, the patient elected to proceed with angiogram and angioplasty. The right radial area was prepped and draped in normal sterile fashion. The right radial artery was cannulated via modified Seldinger technique with placement of 6-Yi sheath. All catheters exchanged through this sheath. FINDINGS: The left circumflex has 80% stenosis mid vessel. This was addressed with a 3.5 x 18 mm Integrity. The left anterior descending has an 80% stenosis in the proximal vessel. This was addressed with a 3.0 x 22 mm Integrity. Result was 0% residual. IMPRESSION: Successful percutaneous transluminal coronary angioplasty stent of the left anterior descending and circumflex, both going from 80% initial stenosis to 0% residual stenosis. TRANSINT:[id number] Voice Confirmation ID: [id number] DOCUMENT ID: [id number] PRASAD HINOJOSA MD at 1414 CC: [id number] DICTATION DATE: 05/17/17 1257 NEWSPAPER MANAGER: 05/17/17 1419 DEP CLI 05/17/17 [place] [id number]
--- NOTE | 2017-05-21 14:14 | HP ---
PATIENT: JESSIE BALDWIN MEDICAL RECORD: [id number] ACCOUNT: [id number] LOCATION:[place] : 40 ADMISSION DATE: 05/17/17 HISTORY AND PHYSICAL EXAMINATION ADMITTING DIAGNOSES: 1. Angina. 2. Coronary artery disease. 3. Percutaneous transluminal coronary angioplasty stent to right coronary artery with concomitant disease of LAD and circumflex. HISTORY OF PRESENT ILLNESS: This is a gentleman who presents with anginal symptomatology, found to have 3-vessel coronary artery disease, underwent PTCA stent of the RCA. He is now brought back for PTCA stent of the LAD and circumflex. PHYSICAL EXAMINATION: GENERAL APPEARANCE: Well-nourished, well-developed, appears stated age. Level of distress, comfortable. PSYCHIATRIC: Mental status, alert, normal affect. Orientation, oriented to time, place and person. EYES: Lids and conjunctiva, noninjected. No discharge, no pallor. ENT: Lips, teeth, gums, normal dentition. Oropharynx, no cyanosis, no pallor. NECK: Carotid arteries, bilateral normal upstroke, no bruits, no thrills. JUGULAR VEINS: No jugular venous pressure or distention. CERVICAL LYMPH NODES: Nontender, nonenlarged. THYROID: Not enlarged. Nontender. No nodules. LUNGS: Respiratory effort, unlabored. CHEST: Normal curvature. No thoracic deformity. No chest wall tenderness. Percussion, resonant. Auscultation, clear. No wheezes, no rales, no rhonchi. CARDIOVASCULAR: Precordial exam, nondisplaced. No heaves or pericardial thrills. Rate and rhythm, regular. Heart sounds, normal S1, normal S2. No S3, no gallop, no rub. Systolic murmur, not heard. Diastolic murmur, not heard. EXTREMITIES: No cyanosis, no edema. Peripheral pulses, full and equal in all extremities, except as noted. No bruits appreciated. ABDOMEN: Soft, nondistended. Normal aorta. No bruit. Nontender. No masses. Liver, nontender, no hepatomegaly. Spleen, nontender, no splenomegaly. MUSCULOSKELETAL: No joint tenderness. No joint swelling. No erythema. NEUROLOGICAL: Normal gait, normal strength, normal tone. SKIN: Warm and dry. REVIEW OF SYSTEMS: The patient reports easy bruising but reports no swollen glands. The patient reports no fever, no night sweats, no significant weight gain, no significant weight loss. No significant exercise tolerance. The patient reports no dry eyes, no irritation, no vision change. Patient reports no difficulty hearing and no ear pain. Patient reports no frequent nose bleeds or nose and sinus problems. Patient reports on arm pain on exertion. No shortness of breath while lying down. No history of heart murmur. Patient reports no cough, no wheezing or coughing up blood. Patient reports no abdominal pain, no vomiting. Normal appetite. No diarrhea and not vomiting blood. No nausea and no constipation. Patient reports no incontinence. No difficulty urinating. No hematuria. No increased frequency. Patient reports no muscle aches. No weakness, no arthralgias, no back pain. No swelling of the extremities. Patient reports no abnormal mole, no jaundice, no rashes. Reports no loss of consciousness. No weakness and no numbness. No seizures, dizziness, HISTORY AND PHYSICAL [id number] DENNY,JESSIE or headaches. The patient reports no depression, no sleep disturbance, feeling safe in a relationship and no alcohol abuse. Patient reports on fatigue. Reports no runny nose or sinus pressure. No itching, no hives, and no frequent sneezing. OVERALL IMPRESSION: Anginal symptomatology with significant disease of the LAD and circumflex. We will proceed with PTCA stent of the LAD and circumflex. TRANSINT:[id number] Voice Confirmation ID: [id number] DOCUMENT ID: [id number] PRASAD HINOJOSA MD at 1414 CC: [id number] DICTATION DATE: 05/17/17 1010 CLERICAL CAR CHECKER: 05/17/17 1023 DEP CLI 05/17/17 [facility] [address] [place] [place] [id number]
== END 2017-05-17 17:05 | disposition home or self-care (01) ==
LOC: D.CATH 07:44
PROVIDERS: Internal Medicine Interventional Cardiology
DX: I25.119 Atherosclerotic heart disease of native coronary artery with unspecified angina pectoris (principal); Z01.812 Encounter for preprocedural laboratory examination